=== PATIENT | female | born 1960 | race Caucasian/White ===

== ENCOUNTER 2023-09-06 11:39 | Emergency (ER) | payer BC ==
[~2023-09-06] VITALS: Ht 167.6 cm; Wt 113.4 kg
[2023-09-06 13:48] VITALS: BP 152/94; O2SAT 99
== END 2023-09-06 13:48 | disposition home or self-care (01) ==
LOC: EDBD 11:39 → ER 11:39
DX: R07.81 Pleurodynia (principal); E11.9 Type 2 diabetes mellitus without complications; F32.A Depression, unspecified; Z88.1 Allergy status to other antibiotic agents
CPT/HCPCS: 71250; A4606; A4663